=== PATIENT | female | born 1985 | race Caucasian/White ===

== ENCOUNTER 2016-06-10 21:00 | Outpatient (CLI) | payer MEDICAID ==
--- NOTE | 2016-06-10 22:01 | L&D Flow Sheet ---
LD Flowsheet Datetime Report Generated by CPN: 06/10/2016 22:00 Datetime: 06/10/2016 21:57 Vital Signs NBP Sys/Hannah/Mean (mmHg): 98 (QS system process) : 53 (QS system process) : 69 (QS system process) Pulse: 88 (QS system process) Datetime: 06/10/2016 21:42 Vital Signs NBP Sys/Hannah/Mean (mmHg): 108 (QS system process) : 51 (QS system process) : 75 (QS system process) Pulse: 94 (QS system process) Datetime: 06/10/2016 21:32 Pain Pain Scale: 3 (Rosemary Ordoñez RN) Pain Presence: Constant (Rosemary Ordoñez, ISI) Pain Type: Sharp; Stabbing (Rosemary Ordoñez, RN) Pain Location: Abdomen; Back; Perineum; Sacrum; Right Hip; Left Hip; Right Buttock; Left Buttock; Right Leg; Left Leg (Rosemary Ordoñez, ISI) Pain Relief Measures: Comfort Measures (Rosemary Chalman, ISI) Vaginal Exam Membrane Status: Intact (Rosemaryreza Ordoñez, ISI) Vaginal Bleeding: None (Rosemaryreza Ordoñez, ISI) Maternal Assessment Level of Consciousness: Fully Conscious (Rosemary Ordoñez, ISI) DTR's/Clonus: DTRs 1+ (Rosemary Ordoñez, ISI) Headache: Denies (Rosemary Ordoñez, ISI) Breath Sounds, Left: Clear and Equal (Rosemary Ordoñez, RN) Breath Sounds, Right: Clear and Equal (Rosemary Smita, RN) Nausea/Vomiting: Denies (Rosemary Smita, RN) RUQ Epigastric Pain: Denies (Rosemary Ordoñez, RN) Datetime: 06/10/2016 21:27 Vital Signs NBP Sys/Hannah/Mean (mmHg): 117 (QS system process) : 58 (QS system process) : 80 (QS system process) Pulse: 93 (QS system process) Datetime: 06/10/2016 21:25 Patient Care Patient Position/Activity: Left Lateral (Rosemary Ordoñez, RN) Datetime: 06/10/2016 21:18 Patient Care Comments: pt forgot to void in cup. pt will give specimen CARROLL (Rosemary Ordoñez RN)
[2016-06-10 22:36] LABS: APPEARANCE,URINE SLIGHTLY-CLOUDY; BILIRUBIN,URINE NEGATIVE (NEGATIVE); GLUCOSE, URINE NEGATIVE (NEGATIVE); KETONES,URINE NEGATIVE (NEGATIVE); LEUKOCYTE ESTERASE,URINE NEGATIVE (NEGATIVE); NITRITE,URINE NEGATIVE (NEGATIVE); PROTEIN,URINE NEGATIVE (NEGATIVE); URINE SPECIFIC GRAVITY 1.027; UROBILINOGEN,URINE NEGATIVE mg/dL (<2.0)
[2016-06-10 22:50] LABS: URINE BARBITURATES SCREEN NEGATIVE; URINE METHADONE SCREEN NEGATIVE; URINE PHENCYCLIDINE SCREEN NEGATIVE
[2016-06-10 23:01] LABS: URINE OPIATES LOW NEGATIVE
== END 2016-06-10 23:02 | disposition home or self-care (01) ==
LOC: LC 21:00
PROVIDERS: ATTEND Specialist
PROC: 4A1HXCZ Monitoring of Products of Conception, Cardiac Rate, External Approach (ICD-10-PCS; principal; 2016-06-10)
DX: O26.892 Other specified pregnancy related conditions, second trimester (principal); R10.9 Unspecified abdominal pain; R10.2 Pelvic and perineal pain; O99.89 Other specified diseases and conditions complicating pregnancy, childbirth and the puerperium; M54.9 Dorsalgia, unspecified; M25.552 Pain in left hip; M25.551 Pain in right hip; M79.605 Pain in left leg; M79.604 Pain in right leg; Z3A.27 27 weeks gestation of pregnancy
CPT/HCPCS: 59899; 81001; 80307; G0480 ×2

== ENCOUNTER 2016-08-31 12:59 | Outpatient (CLI) | payer MEDICAID | END 2016-08-31 14:01 | disposition home or self-care (01) | LOC: LC 12:59 | PROVIDERS: ATTEND Obstetrics & Gynecology | PROC: 4A1HXCZ Monitoring of Products of Conception, Cardiac Rate, External Approach (ICD-10-PCS; principal; 2016-08-31) | DX: O47.1 False labor at or after 37 completed weeks of gestation (principal); Z3A.38 38 weeks gestation of pregnancy | CPT/HCPCS: 59025 ==

== ENCOUNTER 2016-09-03 05:08 | Inpatient (IN) | payer MEDICAID ==
[2016-08-31 12:14] LABS: ABSOLUTE EOSINOPHILS # (AUTO) 0.1 10^3/uL (0.0-0.6); ABSOLUTE LYMPHOCYTES (AUTO) 2.6 10^3/uL (0.5-4.7); ABSOLUTE MONOCYTES (AUTO) 0.7 10^3/uL (0.1-1.4); ABSOLUTE NEUT (AUTO) 5.3 10^3/uL (1.7-8.2); BASOPHILS % (AUTO) 0.3 % (0-2); EOSINOPHILS % (AUTO) 0.8 % (0-6); HEMATOCRIT 32.5 % (36.0-47.0); HEMOGLOBIN 10.9 g/dL (12.0-15.5); HGB HCT DIFFERENCE 0.2; MEAN CORPUSCULAR HEMOGLOBIN 26.7 pg (27.0-33.4); MEAN CORPUSCULAR HGB CONC 33.5 g/dL (32.0-36.0); MEAN CORPUSCULAR VOLUME 80 fl (80-97); MONOCYTES % (AUTO) 7.5 % (3-13); RED BLOOD COUNT 4.07 10^6/uL (3.72-5.28); RED CELL DISTRIBUTION WIDTH 15.4 % (11.5-14.0); SEGMENTED NEUTROPHILS % (AUTO) 61.4 % (42-78); WHITE BLOOD COUNT 8.7 10^3/uL (4.0-10.5)
[2016-08-31 12:21] LABS: APPEARANCE,URINE CLOUDY; BILIRUBIN,URINE NEGATIVE (NEGATIVE); CALCIUM OXALATE CRYSTALS,URINE TOO NUMEROUS TO CNT /HPF; GLUCOSE, URINE NEGATIVE (NEGATIVE); KETONES,URINE TRACE mg/dL (NEGATIVE); LEUKOCYTE ESTERASE,URINE TRACE (NEGATIVE); NITRITE,URINE NEGATIVE (NEGATIVE); PROTEIN,URINE 30 mg/dL (NEGATIVE); URINE SPECIFIC GRAVITY 1.034
[2016-08-31 12:53] LABS: URINE BARBITURATES SCREEN NEGATIVE; URINE METHADONE SCREEN NEGATIVE; URINE OPIATES LOW NEGATIVE; URINE PHENCYCLIDINE SCREEN NEGATIVE
[2016-09-03] MEDS ORDERED: CEFAZOLIN 2 GM/D5W RTU 2 GM/50 ML RTUPB IV PRN (05:37)
[2016-09-03] MEDS: RINGERS SOLUTION,LACTATED 1,000 ML IV PRN (05:58)
[2016-09-03] MEDS ORDERED: KETOROLAC TROMETHAMINE INJ/PF 30 MG/1 ML SDV ONE (07:35)
[2016-09-03] MEDS ORDERED: OXYTOCIN 10 UNIT/ML VIAL ONE (07:35)
[2016-09-03] MEDS ORDERED: EPHEDRINE SULFATE INJ 50 MG/1 ML AMPULE ONE (07:36)
[2016-09-03] MEDS ORDERED: MIDAZOLAM 2 MG/2 ML INJ ONE (07:36)
[2016-09-03] MEDS ORDERED: FENTANYL CITRATE INJ/PF 250 MCG/5 ML AMPULE ONE (07:36)
[2016-09-03] MEDS ORDERED: ACETAMINOPHEN 100 ML IV ONE (07:36)
[2016-09-03] MEDS ORDERED: FENTANYL CITRATE INJ/PF 100 MCG/2 ML AMPUL ONE (07:36)
[2016-09-03] MEDS ORDERED: ONDANSETRON HCL INJ/PF 4 MG/2 ML SDV ONE (07:36)
[2016-09-03] MEDS ORDERED: OXYTOCIN/NORMAL SALINE 20 UNIT/1,000 ML RTUINJ ONE ×2 (07:36→11:33)
[2016-09-03 07:58] LABS: CHLAM PCR NOT DETECTED (NOT DETECT)
[2016-09-03] MEDS ORDERED: FENTANYL CITRATE INJ/PF 100 MCG/2 ML AMPUL IV PRN ×3 (08:23)
[2016-09-03] MEDS ORDERED: MORPHINE SULFATE 10 MG/ML INJ IV PRN (08:23)
[2016-09-03] MEDS ORDERED: ONDANSETRON HCL INJ/PF 4 MG/2 ML SDV IV PRN (08:23)
[2016-09-03] MEDS ORDERED: DIPHENHYDRAMINE HCL 50 MG/ML VIAL IV PRN (08:23)
[2016-09-03] MEDS ORDERED: MEPERIDINE HCL/PF INJ 25 MG/1 ML DISP.SYRIN IV PRN (08:23)
[2016-09-03] MEDS ORDERED: PROMETHAZINE HCL INJ 25 MG/1 ML VIAL IV PRN ×3 (08:23→09:42)
[2016-09-03] MEDS ORDERED: OXYCODONE-ACETAMINOPHEN 5-325 MG TABLET PO PRN ×4 (08:23→09:42)
[2016-09-03] MEDS ORDERED: NALBUPHINE HCL INJ 10 MG/1 ML AMPULE ONE (09:40)
[2016-09-03] MEDS ORDERED: MEASLES,MUMPS&RUBELLA VACC/PF 0.5 ML VIAL SUBCUT PRN (09:42)
[2016-09-03] MEDS ORDERED: SIMETHICONE 80 MG TAB.CHEW PO PRN (09:42)
[2016-09-03] MEDS ORDERED: DIPH/PERTUSS(ACELL)/TETANUS VAC/PF 0.5 ML SYR (>=10YO) IM PRN (09:42)
[2016-09-03] MEDS ORDERED: OXYTOCIN/NORMAL SALINE 1,000 ML IV PRN (09:42)
[2016-09-03] MEDS ORDERED: ACETAMINOPHEN 325 MG TABLET PO PRN (09:42)
--- NOTE | 2016-09-03 09:48 | Brief Operative Note ---
BRIEF OPERATIVE REPORT DATE OF SURGERY: 09/03/16 TIME OF SURGERY: 08:15 PREOPERATIVE DIAGNOSIS: h/o prior C/S x 2, +AFP, normal Informaseq, Smoker , Undesired Fertility. POSTOPERATIVE DIAGNOSIS: h/o prior C/S x 2, +AFP, normal Informaseq, Smoker , Undesired Fertility. SURGEON: ELY SMITH FINDINGS: enlarged right tube, significant adhesive disease, bilateral normal ovaries, normal uterus, Filschie cips x 2 placed bilaterally, VFI weight8#1oz, time of 0832, APgars 2/8 COMPLICATIONS: adhesive disease from prior surgery ESTIMATED BLOOD LOSS: 600ml TISSUE REMOVED OR ALTERED: placenta and cord TECHNICAL PROCEDURE: RELTCS with BTL with Filschie clips
[2016-09-03] MEDS ORDERED: ALBUTEROL 2 MG/5 ML SYRP 60 ML PO PRN (11:51)
[2016-09-03] MEDS: DOCUSATE SODIUM 100 MG CAPSULE PO SCH ×2 (12:11→17:31)
[2016-09-03] MEDS: HYDROMORPHONE HCL INJ/PF 2 MG/ML AMPULE IV PRN ×3 (12:13→19:45)
--- NOTE | 2016-09-03 13:10 | PDOC DELIVERY SUMMARY ---
Delivery Summary - Maternal Hx : III Hx # Term Pregnancies: 2 Hx # Pregnancies: 0 Hx Total # of Abortions (Sponateous & Elective): 0 Number of Living Children: 2 PRASHANTH: 09/09/16 Gestational Age: 39 Risk Factors: Other - +AFP - normal informaseq, Smoker Ruptured Membranes: AROM Time of Rupture: 08:26 Fluids: Clear - Delivery Labor: Not In Labor Presentation: Breech Heart Rate Monitoring: Done Pre-Operatively Uterine Contraction Monitoring: External Pattern: Other: Document in Pattern Other Pattern Other: REassuring but non-reactive Support Person Present: Yes Location: OR : Scheduled Placenta: Within Normal Limits Placenta Description: normal Number of Vessels (Cord): 3 Nuchal Cord: No Delivery of Placenta Date: 09/03/16 Delivery of Placenta Time: 08:34 - Medications Type of Anesthesia:: Spinal - Infant Assess and Care Baby 1 Female Delivery of Infant Date: 09/03/16 Delivery of Infant Time: 08:32 at 1 minute: 2 at 5 minutes: 8 Preprinted Number On Band: [id number] Skin to Skin: No To Nursery At: 08:41 Mode of Transport: [facility] Weight: 3645 kg Length: 19.5 in - Delivery Personnel Nursery RN: Korina RODRIGUEZ Nursery RN: Fantasma BARROS RN: PAULIE HALL RN: WALTER COLLINS MD: ELY SMITH Manager Of Construction: DR. MENDOZA
[2016-09-03] MEDS ORDERED: PHENYLEPHRINE HCL INJ/PF 10 MG/1 ML SDV ONE (13:44)
[2016-09-03] MEDS: KETOROLAC TROMETHAMINE INJ/PF 30 MG/1 ML SDV IV SCH ×2 (16:18→21:40)
[2016-09-03] MEDS: PRENATAL VITAMIN W-O CA NO5/FE FUMARATE/FA CAPSULE PO SCH (19:39)
--- NOTE | 2016-09-03 21:36 | Operative Report ---
Operative Report DATE OF SURGERY: 09/03/16 PREOPERATIVE DIAGNOSIS: h/o prior C/S x 2, +AFP, normal Informaseq, Smoker , Undesired Fertility. POSTOPERATIVE DIAGNOSIS: h/o prior C/S x 2, +AFP, normal Informaseq, Smoker , Undesired Fertility. OPERATION: RELTCS with BTL with Filschie clips SURGEON: ELY SMITH ANESTHESIA: Spinal TISSUE REMOVED OR ALTERED: placenta and cord ESTIMATED BLOOD LOSS: 600ml INTRAOPERATIVE FINDINGS: enlarged right tube, significant adhesive disease, bilateral normal ovaries, normal uterus, Filschie cips x 2 placed bilaterally, VFI weight8#1oz, time of 0832, APgars 2/8 PROCEDURE: PREOPERATIVE DIAGNOSIS: undelivered at [39+1ega] weeks, h/o prior C/S x 2, +AFP, normal Informaseq, Smoker, Undesired Fertility POSTOPERATIVE DIAGNOSIS: Same as above delivered Procedure: Repeat LTCS with BTL (Filschie) Receiving Distribution Station Operator:[None] Anesthesia: Spinal Anesthesia provider: [Naomi CHAUDHARY, Stevan Cedillo CRNA] Estimated blood loss: [600ml] Urine output: [250ml] IV fluids: [1500ml] Complications: [None] Specimens: [None] Findings: [enlarged right fallopian tube, significant adhesive disease omentum to anterior abdominal wall, bilateral normal ovaries, normal uterus, Filschie cips x 2 placed bilaterally, VFI weight8#1oz, time of 0832, APgars 2/8, floating presenting head attempted to deliver vertex but converted during delivery to transverse therefore baby delivered from breech presentation.] Indications: [30yo at 39+1ega with h/o prior section 2 and undesired fertility presents for repeat elective low transverse section due to the above indications. complicated by positive AFP as above with normal Informaseq. The risks benefits and alternatives were discussed with the patient and the patient desires to proceed with planned procedure. ] Procedure: The patient was taken to the operating room where spinal anesthesia was obtained and found to be adequate. She was then prepped and draped in the normal sterile fashion and placed in the dorsal supine position with a leftward tilt. A Pfannenstiel skin incision was then made and carried through to the underlying layers of the fascia with the scalpel. The fascia was incised in the midline and the incision extended laterally with the Casillas scissors. The superior aspect of the fascial incision was then grasped with Mendez clamps elevated and the underlying rectus muscles dissected off [sharply]. Attention was then turned to the inferior aspect of the fascial incision which in a similar fashion was grasped, tented up with Martin clamps, and the rectus muscles dissected off [sharply]. The rectus muscles were then in the midline and the peritoneum at the amount identified and entered [sharply] and the omentum was dissected off the rectus muscles. The peritoneal incision was then extended superiorly and inferiorly with good visualization of the bladder. The bladder blade was inserted and the vesicouterine peritoneum identified grasped with Taiwanese pickups and entered sharply with the Metzenbaum scissors. This incision was then extended laterally with the Metzenbaum scissors and a bladder flap created digitally. The bladder blade was then reinserted and the lower uterine segment incised in a transverse fashion with the scalpel. The uterine incision was then extended bluntly. The bladder blade was removed and the infant's head was attempted to be delivered from cephalic presentation however during attempted delivery the converted to transverse presentation and therefore the infant was delivered from breech presentation atraumatically. The nose and mouth were suctioned and the cord doubly clamped and cut. And the infant was handed off to waiting pediatricians. The placenta was then delivered spontaneously and the uterus exteriorized and cleared of all clots and debris. The uterine incision was then repaired with 1- 0 Vicryl in a running locked fashion. A second layer of the same suture was used to obtain hemostasis via imbrication of the initial layer. The bladder flap was then repaired with 3-0 chromic in a running fashion. The right fallopian tube was then identified and followed out to the fimbriated end and 2 Filshie clips were placed approximately 1 cm apart in the mid ampullary portion of the fallopian tube. The left fallopian tube was then identified and followed out to the fimbriated end and 2 Filshie clips were placed approximately 1 cm apart in the mid ampullary portion of the fallopian tube. Filshie clips were placed instead of Weed tubal ligation due to mesenteric vessels extending to the fallopian tube and very distended. The uterus was returned to the patient's abdomen and Interceed was placed overlying the uterine incision to prevent adhesions. The gutters were cleared of all clots and debris. All operative sites were noted to be hemostatic. The rectus muscles were then reapproximated in the midline with 2-0 chromic suture in a running fashion. Good hemostasis. The fascia was reapproximated with 0 Vicryl in a running fashion from each lateral edge to the midline.The skin was closed with 3-0 Monocryl in a running subcuticular fashion with overlying Dermabond for additional dressing as well as wound closure. The patient tolerated the procedure well. Sponge lap needle and instrument counts are correct times 2. 2 g of Ancef were given prior to skin incision. The patient was taken to the recovery area awake and in stable condition.
[2016-09-03] MEDS ORDERED: RINGERS SOLUTION,LACTATED 1,000 ML IV ONE (21:45)
[2016-09-03] MEDS: OXYCODONE-ACETAMINOPHEN 5-325 MG TABLET PO PRN (21:57)
[2016-09-04] MEDS: OXYCODONE-ACETAMINOPHEN 5-325 MG TABLET PO PRN ×4 (02:02→20:35)
[2016-09-04] MEDS: RINGERS SOLUTION,LACTATED 1,000 ML IV PRN (02:02)
[2016-09-04] MEDS: IBUPROFEN 800 MG TABLET PO SCH ×4 (05:22→23:16)
[2016-09-04 07:03] LABS: HEMATOCRIT 29.6 % (36.0-47.0); HEMOGLOBIN 10.1 g/dL (12.0-15.5); HGB HCT DIFFERENCE 0.7; MEAN CORPUSCULAR HEMOGLOBIN 26.9 pg (27.0-33.4); MEAN CORPUSCULAR VOLUME 79 fl (80-97); RED BLOOD COUNT 3.75 10^6/uL (3.72-5.28); RED CELL DISTRIBUTION WIDTH 15.6 % (11.5-14.0); WHITE BLOOD COUNT 10.8 10^3/uL (4.0-10.5)
[2016-09-04] MEDS ORDERED: PRENATAL VITAMIN W-O CA NO5/FE FUMARATE/FA CAPSULE PO SCH (10:00)
[2016-09-04] MEDS ORDERED: (PENDING PHARMACY ID) (Prenatal Vit/Iron Fumarate/Fa [Prenatal Tablet] 1 EACH) PO SCH (10:00)
[2016-09-04] MEDS: DOCUSATE SODIUM 100 MG CAPSULE PO SCH ×2 (10:04→17:22)
[2016-09-04] MEDS: PRENATAL VITAMIN W-O CA NO5/FE FUMARATE/FA CAPSULE PO SCH (10:04)
--- NOTE | 2016-09-04 10:26 | PDOC PROGRESS REPORT ---
Subjective-OB Subjective: Post Delivery Day: 30 year old. Denies any needs at this time Doing well, visiting with family, pain under control, voiding, + BM, + flatus, diet taken well Physical Exam (OB) Vital Signs: Temp Pulse Resp BP Pulse Ox 97.4 F 84 18 107/55 L 99 09/04/16 08:20 09/04/16 08:20 09/04/16 08:20 09/04/16 08:20 09/04/16 08:20 Intake & Output 09/03/16 09/04/16 09/05/16 06:59 06:59 06:59 Intake Total 3950 Output Total 1175 Balance 2775 Weight 118.6 kg - Dressing Removed: No - dermabond Incision: Well Approximated Closure Type: Surgical Glue - Bilateral Tubal Ligation Dressing Removed: Yes Site: Well Approximated - Lochia Lochia Amount: Scant < 10 ml Lochia Color: Rubra/Red - Abdomen Description: Soft, Round Hernia Present: No Fundal Description: Firm, Midline Fundal Height: u/u - u/2 Objective-Diagnostic Laboratory: 09/04/16 06:55 09/04/16 09/04/16 06:55 06:55 WBC 10.8 H RBC 3.75 Hgb 10.1 L Hct 29.6 L MCV 79 L MCH 26.9 L MCHC 34.0 RDW 15.6 H Plt Count 191 Blood Type O NEGATIVE Assessment and Plan(PN) - Assessment and Plan (1) Smoker Is this a current diagnosis for this admission?: Yes (2) Obesity complicating Qualifiers: Trimester: first trimester Qualified Code(s): O99.211 - Obesity complicating , first trimester Is this a current diagnosis for this admission?: Yes (3) Delivery by section of full-term Is this a current diagnosis for this admission?: Yes (4) Anemia Qualifiers: Anemia type: iron deficiency Is this a current diagnosis for this admission?: Yes - Time Spent with Patient Time with patient: Less than 15 minutes Medications reviewed and adjusted accordingly: Yes - Disposition Anticipated Discharge: Home Within: within 24 hours
[2016-09-05] MEDS: OXYCODONE-ACETAMINOPHEN 5-325 MG TABLET PO PRN (01:59)
[2016-09-05] MEDS: IBUPROFEN 800 MG TABLET PO SCH ×2 (06:03→13:12)
[2016-09-05] MEDS: PRENATAL VITAMIN W-O CA NO5/FE FUMARATE/FA CAPSULE PO SCH (09:05)
[2016-09-05] MEDS: DOCUSATE SODIUM 100 MG CAPSULE PO SCH (09:05)
--- NOTE | 2016-09-05 11:50 | PDOC DISCHARGE SUMMARY ---
Final Diagnosis Discharge Date: 09/05/16 - Final Diagnosis (1) Anemia Is this a current diagnosis for this admission?: Yes (2) Delivery by section of full-term Is this a current diagnosis for this admission?: Yes Discharge Data - Discharge Medication Home Medications: Albuterol Sulfate [Proventil 2 mg/5 ml Syrup] 2 mg PO ASDIR PRN 08/31/16 Ferrous Sulfate [Iron] 325 mg PO DAILY 08/31/16 Vit/Iron Fumarate/FA [ Tablet] 1 each PO DAILY 08/31/16 Intrapartum Procedure(s): : Low Cervical, Vertical - Diagnosis Test Laboratory: Temp Pulse Resp BP Pulse Ox 98.0 F 80 18 80/36 L 100 09/05/16 08:24 09/05/16 08:24 09/05/16 08:24 09/05/16 08:24 09/05/16 08:24 08/31/16 08/31/16 09/04/16 11:05 11:23 06:55 RBC 4.07 3.75 Hgb 10.9 L 10.1 L Hct 32.5 L 29.6 L Urine Opiates Screen NEGATIVE - Discharge information/Instructions Discharge Activity: Activity As Tolerated, No Driving, No Lifting Over 10 Pounds , No Lifting/Push/Pulling, Pelvic Rest, No tub bath Discharge Diet: Regular Disposition: HOME, SELF-CARE Follow up with: [facility] in: 1
[2016-09-05 12:21] VITALS: BP 111/59
== END 2016-09-05 14:25 | disposition home or self-care (01) | DRG 766 ==
LOC: 2S 05:08
PROVIDERS: ADMIT Student in an Organized Health Care Education/Training Program; ATTEND Student in an Organized Health Care Education/Training Program
PROC: 0UL70CZ Occlusion of Bilateral Fallopian Tubes with Extraluminal Device, Open Approach (ICD-10-PCS; 2016-09-03)
PROC: 4A1HXCZ Monitoring of Products of Conception, Cardiac Rate, External Approach (ICD-10-PCS; 2016-09-03)
PROC: 10D00Z1 Extraction of Products of Conception, Low, Open Approach (ICD-10-PCS; principal; 2016-09-03 07:45)
PROC: 3E0234Z Introduction of Serum, Toxoid and Vaccine into Muscle, Percutaneous Approach (ICD-10-PCS; 2016-09-04)
DX: O34.211 Maternal care for low transverse scar from previous cesarean delivery (principal); O32.1XX0 Maternal care for breech presentation, not applicable or unspecified; O26.893 Other specified pregnancy related conditions, third trimester; O99.89 Other specified diseases and conditions complicating pregnancy, childbirth and the puerperium; N73.6 Female pelvic peritoneal adhesions (postinfective); O99.334 Smoking (tobacco) complicating childbirth; O99.02 Anemia complicating childbirth; D64.9 Anemia, unspecified; F17.210 Nicotine dependence, cigarettes, uncomplicated; Z67.41 Type O blood, Rh negative; Z3A.39 39 weeks gestation of pregnancy; Z37.0 Single live birth; Z30.2 Encounter for sterilization
CPT/HCPCS: 1961; 36415; 59025; 80307; 81001; 85025; 85027; 85461; 86850; 86900; 86901; 87491; 87591; 88307; 94799; C1765; J0131; J0690; J1170; J1885; J2250; J2300; J2370; J2405; J2590; J2790; J3010; J3490; J7120

== ENCOUNTER 2016-09-22 11:45 | Emergency (ER) | payer MEDICAID ==
--- NOTE | 2016-09-22 13:13 | ER Document Report ---
HPI - HPI Patient complains to provider of: abdominal wall pain Pain Level: 4 Context: Patient is a 31-year-old female presents emergency department complaining of superficial abdominal wall pain patient states that on Saturday she tripped and landed on her side. She admits to pain on the right lateral aspect of her abdomen with pain radiating down across to her left lower quadrant and also up into the right part of her chest. She denies any pain with deep inspiration. She states it is worse with sitting up sitting back active movement of her torso and right upper extremity. She was evaluated by her OVEN TENDER today who felt that she was stable. She had had a transvaginal ultrasound at that time to evaluate her postop healing. She was told everything else looks fine. Patient had a and tubal ligation [address] [facility] is her OVEN TENDER - CARDIOVASCULAR Cardiovascular: DENIES: Chest pain - REPRODUCTIVE Reproductive: REPORTS: : - DERM Skin Color: Normal Past Medical History - Social History Smoking Status: Current Every Day Smoker Frequency of alcohol use: None Drug Abuse: None Family History: Arthritis, CAD, CVA, DM, Hyperlipidemia, Hypertension Patient has suicidal ideation: No Patient has homicidal ideation: No - Past Medical History Cardiac Medical History: Reports: Hx Hypertension - with Denies: Hx Pulmonary Embolism, Hx Heart Murmur Pulmonary Medical History: Denies: Hx Asthma, Hx Sleep Apnea, Hx Tuberculosis Neurological Medical History: Denies: Hx Cerebrovascular Accident, Hx Seizures Renal/ Medical History: Denies: Hx Peritoneal Dialysis GI Medical History: Reports: Hx Gastroesophageal Reflux Disease - chronic. Denies: Hx Hiatal Hernia, Hx Ulcer Musculoskeltal Medical History: Denies Hx Fibromyalgia Psychiatric Medical History: Traumatic Medical History: Denies: Hx Fractures Infectious Medical History: Denies: Hx HIV Past Surgical History: Reports: Hx Section - x 2, Hx Cholecystectomy, Hx Tonsillectomy - Immunizations Immunizations up to date: Yes Hx Diphtheria, Pertussis, Tetanus Vaccination: No Vertical Provider Document - CONSTITUTIONAL Agree With Documented VS: Yes Exam Limitations: No Limitations General Appearance: WD/WN, No Apparent Distress - INFECTION CONTROL TRAVEL OUTSIDE OF THE [place] IN LAST 30 DAYS: No - RESPIRATORY O2 Sat by Pulse Oximetry: 97 - GI/ABDOMEN Gastrointestinal: Abdomen Soft, Abdomen Tender, No Organomegaly, Normal Bowel Sounds. negative: Abdominal Rebound, Hepatomegaly, Spleenomegaly, Abdominal Mass - No longer tender to superficial palpation of the right serratus anterior , Abnormal Bowel Sounds - MUSCULOSKELETAL/EXTREMETIES Musculoskeletal/Extremeties: MAEW, FROM, Non-Tender, No Edema. negative: Eccymosis - NEURO Level of Consciousness: Awake, Alert, Appropriate Motor/Sensory: No Motor Deficit, No Sensory Deficit - DERM Integumentary: Warm, Dry, No Rash Course - Re-evaluation Re-evalutation: 09/22/16 16:13 Patient is a 22-year-old female presents with right lateral abdominal wall tenderness after fall. No evidence of free fluid on her FAST exam patient otherwise has benign abdominal findings. Return home he can follow-up with OB/ TENDER LABOR - Vital Signs Vital signs: Temp Pulse Resp BP Pulse Ox 97.8 F 87 18 130/71 H 97 09/22/16 12:06 09/22/16 12:06 09/22/16 12:06 09/22/16 12:06 09/22/16 12:06 Procedures - Ultrasound/Bedside Ultrasound/Bedside Ultrasound: Normal - normal FAST exam, no free fluid Discharge - Discharge Clinical Impression: Abdominal muscle strain Condition: Good Disposition: HOME, SELF-CARE Instructions: Muscle Strain ([facility]), Warm Packs ([facility]), Use of [id number] Ibuprofen ([facility]) Referrals: ELY SMITH MD [ACTIVE STAFF] - Follow up as needed
[2016-09-22] MEDS ORDERED: IBUPROFEN 600 MG TABLET PO ONE (13:14)
[2016-09-22 13:22] VITALS: BP 132/75
== END 2016-09-22 13:22 | disposition home or self-care (01) ==
LOC: ER 11:45
DX: O9A.23 Injury, poisoning and certain other consequences of external causes complicating the puerperium (principal); S39.011A Strain of muscle, fascia and tendon of abdomen, initial encounter; W01.0XXA Fall on same level from slipping, tripping and stumbling without subsequent striking against object, initial encounter; O99.335 Smoking (tobacco) complicating the puerperium; Z98.890 Other specified postprocedural states; Z98.51 Tubal ligation status
CPT/HCPCS: 99283; J3490

== ENCOUNTER 2017-01-29 22:27 | Emergency (ER) | payer MEDICAID ==
[2017-01-30 00:31] LABS: APPEARANCE,URINE CLOUDY; BILIRUBIN,URINE NEGATIVE (NEGATIVE); GLUCOSE, URINE NEGATIVE (NEGATIVE); KETONES,URINE NEGATIVE (NEGATIVE); LEUKOCYTE ESTERASE,URINE NEGATIVE (NEGATIVE); NITRITE,URINE NEGATIVE (NEGATIVE); PROTEIN,URINE 100 mg/dL (NEGATIVE); URINE SPECIFIC GRAVITY 1.032
--- NOTE | 2017-01-30 01:32 | ER Document Report ---
ED General - General Chief Complaint: Pain With Urination Stated Complaint: PAINFUL URINATION Time Seen by Provider: 01/30/17 01:19 Notes: Patient is a 31-year-old female presents with complaint of bilateral lower back pain and dysuria. She says that symptoms first started about a week ago but has been much worse over the last 3 days. No fevers. No vomiting. No diarrhea. No anterior abdominal pain. She says that every time she urinates it johnson and she feels as if she has to go and sometimes she feels as if her urine is obstructed and then she will eventually urinate. She is currently on her menstrual period. She denies any abnormal vaginal discharge. She denies history of genital herpes. She has no other complaints at this time. TRAVEL OUTSIDE OF THE [place] IN LAST 30 DAYS: No - Related Data Allergies/Adverse Reactions: No Known Allergies Allergy (Verified 09/22/16 12:05) Past Medical History - Social History Smoking Status: Never Smoker Frequency of alcohol use: None Drug Abuse: None Family History: Arthritis, CAD, CVA, DM, Hyperlipidemia, Hypertension Patient has suicidal ideation: No Patient has homicidal ideation: No - Past Medical History Cardiac Medical History: Reports: Hx Hypertension - with Denies: Hx Pulmonary Embolism, Hx Heart Murmur Pulmonary Medical History: Denies: Hx Asthma, Hx Sleep Apnea, Hx Tuberculosis Neurological Medical History: Denies: Hx Cerebrovascular Accident, Hx Seizures Renal/ Medical History: Denies: Hx Peritoneal Dialysis GI Medical History: Reports: Hx Gastroesophageal Reflux Disease - chronic. Denies: Hx Hiatal Hernia, Hx Ulcer Musculoskeltal Medical History: Denies Hx Fibromyalgia Psychiatric Medical History: Traumatic Medical History: Denies: Hx Fractures Infectious Medical History: Denies: Hx HIV Past Surgical History: Reports: Hx Section - x 2, Hx Cholecystectomy, Hx Tonsillectomy - Immunizations Immunizations up to date: Yes Hx Diphtheria, Pertussis, Tetanus Vaccination: No Review of Systems - Review of Systems Notes: My Normal Review Basic REVIEW OF SYSTEMS: CONSTITUTIONAL : Denies fever, chills, or sweats. Denies recent illness. RESPIRATORY: Denies cough, cold, or chest congestion. Denies shortness of breath, difficulty breathing, or wheezing. GASTROINTESTINAL: No abdominal pain. GENITOURINARY: Dysuria FEMALE GENITOURINARY: currently on menstrual period. MUSCULOSKELETAL: Bilateral low back pain. SKIN: Denies rash or skin lesions. NEUROLOGICAL: Denies altered mental status or loss of consciousness. Denies headache. Denies weakness or paralysis or loss of use of either side. Denies problems with gait or speech. Denies sensory or motor loss. ALL OTHER SYSTEMS REVIEWED AND NEGATIVE. Physical Exam - Vital signs Vitals: Temp Pulse Resp BP Pulse Ox 99.2 F 87 16 121/61 97 01/29/17 23:01 01/29/17 23:01 01/29/17 23:01 01/29/17 23:01 01/29/17 23:01 - Notes Notes: General Appearance: Well nourished, alert, cooperative, no acute distress, no obvious discomfort. Vitals: reviewed, See vital signs table. Eyes: PERRL, EOMI, Conjuctiva clear Lungs: No wheezing, No rales, No rhonci, No accessory muscle use, good air exchange bilaterally. Heart: Normal rate, Regular rythm, No murmur, no rub Abdomen: Normal BS, soft, No rigidity, No abdominal tenderness, No guarding, no rebound, no abdominal masses, no organomegaly Extremities: strength 5/5 in all extremities, good pulses in all extremities, no swelling or tenderness in the extremities, no edema. Skin: warm, dry, appropriate color, no rash Neuro: speech clear, oriented x 3, normal affect, responds appropriately to questions. Course - Re-evaluation Re-evalutation: 01/30/17 05:56 The exact cause of the patient's dysuria is not clear at this time. I did talked about the potential of sexual transmitted diseases. At this time she wants to forego pelvic exam and she wants to see if there is a 3 day course of antibiotics will help. I did place her in a 3 day course of antibiotics because she does have dysuria with some costovertebral angle tenderness which is very consistent with that of a UTI. Currently urinalysis does not show infection however she is on her menstrual period in the urine sample is very much contaminated due to her being on a period. Informed her that because of this we will treat her based on her clinical systems for 3 days. If her symptoms worsen or if she has fevers and she is to return to the ER immediately. Patient agrees with plan will be discharged home. Dictation of this chart was performed using voice recognition software; therefore, there may be some unintended grammatical errors. - Vital Signs Vital signs: Temp Pulse Resp BP Pulse Ox 98.3 F 65 18 108/62 98 01/30/17 03:22 01/30/17 03:22 01/30/17 03:22 01/30/17 03:22 01/30/17 03:22 - Laboratory Laboratory results interpreted by me: 01/30/17 00:01 Urine Protein 100 H Urine Blood LARGE H Urine Urobilinogen 2.0 H Discharge - Discharge Clinical Impression: Dysuria Back pain Qualifiers: Back pain location: low back pain Chronicity: acute Back pain laterality: bilateral Sciatica presence: without sciatica Qualified Code(s): M54.5 - Low back pain Condition: Good Disposition: HOME, SELF-CARE Additional Instructions: The exact cause of your symptoms is not clear. Her symptoms are consistent with that of a UTI however her workup thus far is negative. We will therefore place you on a short course of antibiotics. Urine has been sent for culture. Please take the antibiotics as prescribed. Please return to the ER in 3 days if you are not having improvement of your symptoms. Please return to the ER immediately if you have abnormal vaginal discharge, fever,s vomiting, or feel unwell. Prescriptions: Ciprofloxacin HCl [Cipro 500 mg Tablet] 500 mg PO BID #6 tablet Forms: Return to Work
--- NOTE | 2017-01-30 02:31 | RADIOLOGY REPORT (SQ) ---
EXAM DESCRIPTION: U/S RETROPERITON (RENAL/AORTA) COMPLETED DATE/TIME: 01/30/2017 2:02 am REASON FOR STUDY: bilateral flank pain, dysuria COMPARISON: None. TECHNIQUE: Dynamic and static grayscale images acquired of the kidneys and bladder and recorded on P ACS. Additional selected color Doppler and spectral images recorded. LIMITATIONS: None. FINDINGS: RIGHT KIDNEY: Normal size. 12.2 cm. Normal echogenicity. No solid or suspicious masses. No hydronephrosis. No calcifications. LEFT KIDNEY: Normal size. 11.6 cm. Normal echogenicity. No solid or suspicious masses. No hydronep hrosis. No calcifications. BLADDER: No masses. Bilateral ureteral jet flow demonstrated. OTHER FINDINGS: No other significant finding. IMPRESSION: NORMAL RENAL AND BLADDER ULTRASOUND. TECHNICAL DOCUMENTATION: JOB ID: [id number] [email or web address] All Rights Reserved
[2017-01-30] MEDS ORDERED: CIPROFLOXACIN HCL 500 MG TABLET PO ONE (03:09)
[2017-01-30 03:23] VITALS: BP 108/62
== END 2017-01-30 03:22 | disposition home or self-care (01) ==
LOC: ER 22:27
DX: R30.0 Dysuria (principal); M54.5 Low back pain; Z90.49 Acquired absence of other specified parts of digestive tract
CPT/HCPCS: 99284; 87086; 81025; 81001; 76770; J3490

== ENCOUNTER 2017-09-16 19:09 | Emergency (ER) | payer MEDICAID ==
[2017-09-16 19:28] VITALS: BP 128/69
[2017-09-16] MEDS ORDERED: DEXAMETHASONE SOD PHOS INJ 10 MG/1 ML VIAL IM ONE (19:39)
[2017-09-16] MEDS ORDERED: KETOROLAC TROMETHAMINE INJ/PF 30 MG/1 ML SDV IM ONE (19:39)
[2017-09-16] MEDS ORDERED: PENICILLIN G BENZATHINE 1.2 MILLION UNIT/2 ML DISP.SYRIN IM ONE (19:39)
--- NOTE | 2017-09-16 19:47 | ER Document Report ---
ED ENT - General Chief Complaint: Fever/ congestion Stated Complaint: HEAD CONGESTION Time Seen by Provider: 09/16/17 19:31 Mode of Arrival: Ambulatory Information source: Patient Notes: 31-year-old female presents to ED for sore throat, fever up to 103, and nasal congestion since last night. She states she also has a headache. States she has been taken Tylenol and Motrin to keep her fever down. TRAVEL OUTSIDE OF THE [place] IN LAST 30 DAYS: No - HPI Patient complains to provider of: Nose problem, Throat problem, Other - Headache Onset: Yesterday Quality of pain: Achy, Other - Throbbing headache sore throat Severity: Moderate Pain Level: 4 Context: Recent Illness Location of pain: Nose, Throat, Other - Head Associated symptoms: Fever, Headache, Runny nose, Sinus pain, Sinus drainage, Sore throat Similar symptoms previously: No Recently seen / treated by doctor: No - Related Data Allergies/Adverse Reactions: No Known Allergies Allergy (Verified 09/22/16 12:05) Past Medical History - General Information source: Patient - Social History Smoking Status: Current Every Day Smoker Cigarette use (# per day): Yes - Half pack per day Chew tobacco use (# tins/day): No Smoking Education Provided: Yes - 4 minutes Frequency of alcohol use: Social Drug Abuse: None Occupation: None Lives with: Friend Family History: Arthritis, CAD, CVA, DM, Hyperlipidemia, Hypertension Patient has suicidal ideation: No Patient has homicidal ideation: No - Past Medical History Cardiac Medical History: Reports: Hx Hypertension - with Pulmonary Medical History: Reports: Hx Bronchitis EENT Medical History: Reports: None Neurological Medical History: Reports: None Endocrine Medical History: Reports: None Renal/ Medical History: Reports: Hx Ovarian Cysts Malignancy Medical History: Reports: None GI Medical History: Reports: Hx Gastroesophageal Reflux Disease - chronic Musculoskeltal Medical History: Reports None Skin Medical History: Reports None Psychiatric Medical History: Reports: None Traumatic Medical History: Reports: None Infectious Medical History: Reports: None Past Surgical History: Reports: Hx Section - x 2, Hx Cholecystectomy, Hx Tonsillectomy - Immunizations Immunizations up to date: Yes Hx Diphtheria, Pertussis, Tetanus Vaccination: No Review of Systems - Review of Systems Constitutional: Fever, Recent illness EENT: Nose discharge, Sinus discharge, Throat pain Cardiovascular: No symptoms reported Respiratory: No symptoms reported Gastrointestinal: No symptoms reported Genitourinary: No symptoms reported Female Genitourinary: No symptoms reported Musculoskeletal: No symptoms reported Skin: No symptoms reported Hematologic/Lymphatic: No symptoms reported Neurological/Psychological: Headaches -: Yes All other systems reviewed and negative Physical Exam - Vital signs Vitals: Temp Pulse Resp BP Pulse Ox 98.2 F 119 H 20 128/69 H 98 09/16/17 19:27 09/16/17 19:27 09/16/17 19:27 09/16/17 19:27 09/16/17 19:27 Interpretation: Tachycardic - General General appearance: Appears well, Alert - HEENT Head: Normocephalic, Atraumatic Eyes: Normal Pupils: PERRL Ears: Normal External canal: Normal Tympanic membrane: Normal Sinus: Normal Nasal: Purulent discharge, Swelling Mouth/Lips: Normal Mucous membranes: Normal Pharynx: Erythema, Exudate, Post nasal drainage, Tonsillar hypertrophy, Other - Patient able to swallow her own saliva. Patient able to swallow pills and drink soda. No: Blood in hypopharynx, Peritonsillar abscess, Retropharyngeal abscess, Uvular edema, Potential airway comprom. Neck: Anterior cervical chain - Respiratory Respiratory status: No respiratory distress Chest status: Nontender Breath sounds: Normal Chest palpation: Normal - Cardiovascular Rhythm: Regular Heart sounds: Normal auscultation Murmur: No - Abdominal Inspection: Normal Distension: No distension Bowel sounds: Normal Tenderness: Nontender Organomegaly: No organomegaly - Back Back: Normal, Nontender - Extremities General upper extremity: Normal inspection, Nontender, Normal color, Normal ROM , Normal temperature General lower extremity: Normal inspection, Nontender, Normal color, Normal ROM , Normal temperature, Normal weight bearing. 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 Will treat with penicillin G, Toradol, and Decadron and have follow-up with primary doctor tomorrow. Patient was informed that she should return to the emergency right away if she has any difficulty swallowing any shortness of breath or any insect increase in symptoms. - Vital Signs Vital signs: Temp Pulse Resp BP Pulse Ox 98.2 F 99 20 128/69 H 98 09/16/17 19:27 09/16/17 20:09 09/16/17 19:27 09/16/17 19:27 09/16/17 19:27 Discharge - Discharge Clinical Impression: Sore throat URI (upper respiratory infection) Qualifiers: URI type: unspecified URI Qualified Code(s): J06.9 - Acute upper respiratory infection, unspecified Condition: Stable Disposition: HOME, SELF-CARE Instructions: Family Physicians / Practices Additional Instructions: SORE THROAT: Sore throats may be caused by viruses, bacteria, or fungi. Most are due to a virus, and must get better on their own. Bacterial sore throats, particularly those due to "strep," need treatment with antibiotics. If an antibiotic is prescribed, be sure to take the medication for a full 10 days. Failure to take the antibiotic can result in complications such as rheumatic fever. Sometimes, an injection of antibiotics is given instead of pills or liquid. This single "shot" is equal in effectiveness to the oral medication. To relieve symptoms, take acetaminophen for pain. Sip clear liquids frequently, or eat popsicles or ice chips. Anesthetic sprays or lozenges may help. Make sure the air in the room is not too dry. Avoid using decongestants or antihistamines. Call the doctor if there is no improvement in two days, or if you have difficulty breathing, increasing throat pain, high fever, rash, or frequent vomiting. UPPER RESPIRATORY ILLNESS: You have a viral infection of the respiratory passages -- a "cold." This common infection causes nasal congestion, drainage, and often sore throat and cough. It is highly contagious. The disease usually lasts about 10 to 14 days. There is no "cure" for the viral infection -- it must run its course. If there is a complication, such as bacterial infection in the nose, sinuses, middle ear, or bronchial tubes, antibiotics may be required. The antibiotics won't affect the virus. Drink plenty of fluids. A humidifier may help. An expectorant medication or decongestant may make you more comfortable. Use acetaminophen or ibuprofen for fever or aches. See the doctor if fever persists over two days, if there is any significant worsening of your symptoms, or if you simply fail to improve as expected. USE OF ACETAMINOPHEN (Tylenol): Acetaminophen may be taken for pain relief or fever control. It's much safer than aspirin, offering a wider range of "safe" dosages. It is safe during . Some brand names are Tylenol, Panadol, Datril, Anacin 3, Tempra, and Liquiprin. Acetaminophen can be repeated every four hours. The following are maximum recommended dosages: >89 pounds or adults 650 mg to 900 mg Acetaminophen can be repeated every four hours. Maximum dose not to exceed 4000 mg a day. Penicillins The antibiotic you have received is a member of the penicillin family. This is a very useful class of antibiotics. The particular type of antibiotic chosen for you was determined by the nature of your problem. Penicillins are absorbed best when taken on an empty stomach, and should be taken either a half hour before or two hours after a meal. Some newer medicines of the penicillin class are better taken with food -- if this is the case, the pharmacist will label the medicine to alert you. Penicillins usually have no side effects. However, allergy to penicillins is common. If you have had an allergic reaction to any drug of the penicillin family, you should never take any other penicillin. Notify your doctor at once if you develop hives, itching, swelling, faintness, or shortness of breath. Less serious side effects can include nausea or diarrhea. STEROID MEDICATION: You have been given a medicine of the cortisone/steroid class. This medication is used to control inflammation or allergy. It is usually only given for a short period of time, until the acute process subsides. There are usually no side effects from short-term use of cortisone-like medications. Some persons feel an increased sense of well-being and are not sleepy at bedtime. Long-term use of cortisone medications is best avoided, unless required for a severe condition. If your condition does not remit, or relapses after the course of corticosteroid medication, you should consult your physician. Toradol Injection You have been given an injection of ketorolac tromethamine (Toradol). This is an excellent, safe drug for pain control. It also has potent antiinflammatory action. You should have significant pain relief within about one hour. Toradol is not addicting and is non-sedating. It does not interfere with driving or work. Call or return if you develop itching, hives, shortness of breath, or rash. Salt and soda solution 1 quart of water 1 tablespoon of salt 1 teaspoon of baking soda Mixed 3 ingredients together and boil for 1 minute Placed in a covered quart jar Use 1/2 ounce of cold solution to gargle 3 times a day SMOKING: If you smoke, you should stop smoking. The tar and chemicals in cigarette smoke are harmful. Smoking has been shown to cause: emphysema chronic bronchitis lung cancer mouth and throat cancer stomach and pancreas cancer premature aging defects In addition, smoking increases ear and lung infections in children of smokers. FOLLOW-UP CARE: If you have been referred to a physician for follow-up care, call the physician s office for an appointment as you were instructed or within the next two days. If you experience worsening or a significant change in your symptoms, notify the physician immediately or return to the Emergency Department at any time for re-evaluation. Forms: Elevated Blood Pressure, Smoking Cessation Education
== END 2017-09-16 20:09 | disposition home or self-care (01) ==
LOC: ER 19:09
DX: J02.9 Acute pharyngitis, unspecified (principal); J06.9 Acute upper respiratory infection, unspecified; R51 Headache; R50.9 Fever, unspecified; F17.210 Nicotine dependence, cigarettes, uncomplicated; Z90.49 Acquired absence of other specified parts of digestive tract
CPT/HCPCS: 99282; 96372; J1885; J0561; J1100

== ENCOUNTER 2018-10-28 18:56 | Emergency (ER) | payer SELFPAY ==
[2018-10-28] MEDS ORDERED: NORMAL SALINE 1000 ML 1,000 ML IV ONE (19:28)
[2018-10-28] MEDS ORDERED: KETOROLAC TROMETHAMINE INJ/PF 30 MG/1 ML SDV IV ONE ×2 (19:28→22:22)
--- NOTE | 2018-10-28 19:29 | ER Document Report ---
ED Medical Screen (RME) - General Chief Complaint: Vaginal Pain Stated Complaint: PELVIC PAIN Time Seen by Provider: 10/28/18 19:25 Mode of Arrival: Ambulatory Information source: Patient Notes: Patient presents complaining of lower pelvic pain to the left side that started yesterday. Patient's had nausea and vomiting. Patient reports vomiting numerous episodes. Patient denies any fever or urinary symptoms. I have greeted and performed a rapid initial assessment of this patient. A comprehensive ED assessment and evaluation of the patient, analysis of test results and completion of the medical decision making process will be conducted by additional ED providers. TRAVEL OUTSIDE OF THE [place] IN LAST 30 DAYS: No - Related Data Allergies/Adverse Reactions: No Known Allergies Allergy (Verified 10/28/18 18:57) Past Medical History - Past Medical History Cardiac Medical History: Reports: Hx Hypertension - with Pulmonary Medical History: Reports: Hx Bronchitis Denies: Hx Asthma, Hx Tuberculosis Neurological Medical History: Denies: Hx Seizures Renal/ Medical History: Reports: Hx Ovarian Cysts. Denies: Hx Peritoneal Dialysis GI Medical History: Reports: Hx Gastroesophageal Reflux Disease - chronic. Denies: Hx Hiatal Hernia, Hx Ulcer Musculoskeltal Medical History: Denies Hx Fibromyalgia Psychiatric Medical History: Traumatic Medical History: Denies: Hx Fractures Infectious Medical History: Denies: Hx HIV Past Surgical History: Reports: Hx Section - x 2, Hx Cholecystectomy, Hx Tonsillectomy - Immunizations Immunizations up to date: Yes Hx Diphtheria, Pertussis, Tetanus Vaccination: No Physical Exam - Vital signs Vitals: Temp Pulse Resp BP Pulse Ox 98.7 F 115 H 18 130/77 H 97 10/28/18 19:00 10/28/18 19:00 10/28/18 19:00 10/28/18 19:00 10/28/18 19:00 - Abdominal Tenderness: Tender - Left lower pelvic tenderness Course - Vital Signs Vital signs: Temp Pulse Resp BP Pulse Ox 98.7 F 115 H 18 130/77 H 97 10/28/18 19:00 10/28/18 19:00 10/28/18 19:00 10/28/18 19:00 10/28/18 19:00
[2018-10-28 20:07] LABS: ABSOLUTE BASOPHILS # (AUTO) 0.1 10^3/uL (0.0-0.2); ABSOLUTE EOSINOPHILS # (AUTO) 0.1 10^3/uL (0.0-0.6); ABSOLUTE LYMPHOCYTES (AUTO) 2.9 10^3/uL (0.5-4.7); ABSOLUTE MONOCYTES (AUTO) 0.5 10^3/uL (0.1-1.4); ABSOLUTE NEUT (AUTO) 10.3 10^3/uL (1.7-8.2); BASOPHILS % (AUTO) 0.6 % (0-2); EOSINOPHILS % (AUTO) 0.4 % (0-6); HEMATOCRIT 39.8 % (36.0-47.0); HEMOGLOBIN 13.2 g/dL (12.0-15.5); LYMPHOCYTES % (AUTO) 20.8 % (13-45); MEAN CORPUSCULAR HEMOGLOBIN 25.3 pg (27.0-33.4); MEAN CORPUSCULAR HGB CONC 33.1 g/dL (32.0-36.0); MEAN CORPUSCULAR VOLUME 76 fl (80-97); MONOCYTES % (AUTO) 3.8 % (3-13); PLATELET COUNT 323 10^3/uL (150-450); RED BLOOD COUNT 5.21 10^6/uL (3.72-5.28); RED CELL DISTRIBUTION WIDTH 14.8 % (11.5-14.0); SEGMENTED NEUTROPHILS % (AUTO) 74.4 % (42-78); TOTAL CELLS COUNTED % (AUTO) 100 %; WHITE BLOOD COUNT 13.9 10^3/uL (4.0-10.5)
[2018-10-28 20:11] LABS: APPEARANCE,URINE SLIGHTLY-CLOUDY; BILIRUBIN,URINE SMALL (NEGATIVE); COLOR,URINE AMBER; GLUCOSE, URINE NEGATIVE (NEGATIVE); KETONES,URINE 20 mg/dL (NEGATIVE); LEUKOCYTE ESTERASE,URINE NEGATIVE (NEGATIVE); NITRITE,URINE NEGATIVE (NEGATIVE); PROTEIN,URINE 30 mg/dL (NEGATIVE)
[2018-10-28 20:30] LABS: ALANINE AMINOTRANSFERASE 19 U/L (9-52); ALBUMIN 4.7 g/dL (3.5-5.0); ALKALINE PHOSPHATASE 99 U/L (38-126); ANION GAP 12 (5-19); ASPARTATE AMINO TRANSFERASE 18 U/L (14-36); BILIRUBIN,DIRECT 0.3 mg/dL (0.0-0.4); BILIRUBIN,TOTAL 0.5 mg/dL (0.2-1.3); BLOOD UREA NITROGEN 15 mg/dL (7-20); CALCIUM 10.1 mg/dL (8.4-10.2); CARBON DIOXIDE 26 mmol/L (22-30); CHLORIDE 102 mmol/L (98-107); GLUCOSE 101 mg/dL (75-110); POTASSIUM 4.4 mmol/L (3.6-5.0); SODIUM 140.2 mmol/L (137-145)
--- NOTE | 2018-10-28 20:46 | RADIOLOGY REPORT (SQ) ---
EXAM DESCRIPTION: US PELVIS TRANSVAGINAL COMPLETED DATE/TME: 10/28/2018 19:28 CLINICAL HISTORY: 33 years Female LLQ pain COMPARISON: None. TECHNIQUE: Transvaginal duplex imaging performed to evaluate the pelvis. FINDINGS: Cervix is closed and measures 3.1 cm. Uterus measures 11.6 x 4.9 cm. Endometrium is thickened and heterogeneous measuring 1.5 cm. No internal blood flow is noted. Right ovary measures 2.8 x 3 cm. Normal blood flow. Simple cyst measures 1.6 x 1.6 cm. Findings are almost certainly benign and no follow-up is recommended. Left ovary measures 1.7 x 1.7 x 2.3 cm normal blood flow. No evidence of adnexal mass. IMPRESSION: Mildly thickened endometrium Simple appearing cyst in the right ovary. This is almost certainly benign and no follow-up is recommended.
--- NOTE | 2018-10-28 23:05 | ER Document Report ---
ED General - General Chief Complaint: Vaginal Pain Stated Complaint: PELVIC PAIN Time Seen by Provider: 10/28/18 19:25 Mode of Arrival: Ambulatory Notes: Patient is a pleasant 33-year-old female presents with complaints of episode of severe pelvic pain rating to the back. Today she also had some vomiting with it when the pain was more intense. She says the last few times before her. She is been having this pain. She is also been having little bit more frequent menstrual periods and she will bleed for about a week at a time. She has had previous tubal ligation. No fevers. No vomiting. No diarrhea. No abnormal vaginal discharge. She is sexually active. Patient did have ultrasound ordered in triage and patient says that the ultrasound made her pain worse. TRAVEL OUTSIDE OF THE [place] IN LAST 30 DAYS: No - Related Data Allergies/Adverse Reactions: No Known Allergies Allergy (Verified 10/28/18 18:57) Past Medical History - General Information source: Patient - Social History Smoking Status: Never Smoker Chew tobacco use (# tins/day): No Frequency of alcohol use: None Drug Abuse: None Family History: Arthritis, CAD, CVA, DM, Hyperlipidemia, Hypertension Patient has suicidal ideation: No Patient has homicidal ideation: No - Past Medical History Cardiac Medical History: Reports: Hx Hypertension - with Pulmonary Medical History: Reports: Hx Bronchitis Denies: Hx Asthma, Hx Tuberculosis Neurological Medical History: Denies: Hx Seizures Renal/ Medical History: Reports: Hx Ovarian Cysts. Denies: Hx Peritoneal Dialysis GI Medical History: Reports: Hx Gastroesophageal Reflux Disease - chronic. Denies: Hx Hiatal Hernia, Hx Ulcer Musculoskeletal Medical History: Denies Hx Fibromyalgia Psychiatric Medical History: Traumatic Medical History: Denies: Hx Fractures Infectious Medical History: Denies: Hx HIV Past Surgical History: Reports: Hx Section - x 2, Hx Cholecystectomy, Hx Tonsillectomy - Immunizations Immunizations up to date: Yes Hx Diphtheria, Pertussis, Tetanus Vaccination: No Review of Systems - Review of Systems Notes: My Normal Review Basic REVIEW OF SYSTEMS: CONSTITUTIONAL : Denies fever, chills, or sweats. Denies recent illness. RESPIRATORY: Denies cough, cold, or chest congestion. Denies shortness of breath, difficulty breathing, or wheezing. GASTROINTESTINAL: Lower abdominal pain that is more into the pelvis. Vomiting. GENITOURINARY: Denies difficulty urinating, painful urination, burning, frequency, or blood in urine. FEMALE GENITOURINARY: Abnormal vaginal bleeding. MUSCULOSKELETAL: Denies neck or back pain or joint pain or swelling. SKIN: Denies rash or skin lesions. NEUROLOGICAL: Denies altered mental status or loss of consciousness. Denies headache. Denies weakness or paralysis or loss of use of either side. Denies problems with gait or speech. Denies sensory or motor loss. ALL OTHER SYSTEMS REVIEWED AND NEGATIVE. Physical Exam - Vital signs Vitals: Temp Pulse Resp BP Pulse Ox 98.7 F 115 H 18 130/77 H 97 10/28/18 19:00 10/28/18 19:00 10/28/18 19:00 10/28/18 19:00 10/28/18 19:00 - Notes Notes: General Appearance: Well nourished, alert, cooperative, no acute distress, moderate obvious discomfort. Vitals: reviewed, See vital signs table. Eyes: PERRL, EOMI, Conjuctiva clear Lungs: No wheezing, No rales, No rhonci, No accessory muscle use, good air exchange bilaterally. Heart: Normal rate, Regular rythm, No murmur, no rub Abdomen: Normal BS, soft, No rigidity, lower abdominal tenderness to palpation that slightly worse on the left., No guarding, no rebound, no abdominal masses, no organomegaly Pelvic: Normal external genitalia. No blood in vaginal vault. No abnormal discharge. Exam performed with female devops engineer, Angelica HAGAN. Extremities: strength 5/5 in all extremities, good pulses in all extremities, no swelling or tenderness in the extremities, no edema. Skin: warm, dry, appropriate color, no rash Neuro: speech clear, oriented x 3, normal affect, responds appropriately to questions. Course - Re-evaluation Re-evalutation: 10/29/18 00:16 Patient in fact the patient has had irregular menstrual periods with heavy bleeding as well as pain right around the time of her menstrual period has been more intense and suspect there is a good chance she may have endometriosis. Most of her labs are normal-appearing. Pelvic exam did not show any abnormal discharge. He do not suspect STD at this time. I still sent swabs for gonorrhea chlamydia in case they are positive and we will call her if they are positive. At this time feel she safe to be discharged home. I will refer her to gynecology for further treatment work-up. I will place her on Toradol. I encouraged her return to ER if she has worsening pain, fevers, heavy bleeding, or if she feels she is worsening in any way. Patient agrees with plan will be discharged home. Dictation of this chart was performed using voice recognition software; therefore, there may be some unintended grammatical errors. - Vital Signs Vital signs: Temp Pulse Resp BP Pulse Ox 98.7 F 115 H 18 130/77 H 97 10/28/18 19:00 10/28/18 19:00 10/28/18 19:00 10/28/18 19:00 10/28/18 19:00 - Laboratory Result Diagrams: 10/28/18 19:38 10/28/18 19:38 Laboratory results interpreted by me: 10/28/18 10/28/18 19:38 19:38 WBC 13.9 H MCV 76 L MCH 25.3 L RDW 14.8 H Absolute Neutrophils 10.3 H Urine Protein 30 H Urine Ketones 20 H Urine Blood SMALL H Urine Bilirubin SMALL H Urine Urobilinogen 2.0 H Discharge - Discharge Clinical Impression: Pelvic pain Condition: Good Disposition: HOME, SELF-CARE Additional Instructions: I suspect based on your history that it is likely that you may have endometriosis. Ultrasound does show small ovarian cyst and this should not be causing your pain. I suggest you follow-up with gynecology. I will refer you to our wood heel flap trimmer on-call, Dr. Kerry Crowell. Please call her office to make a close follow-up appointment. I prescribed you Toradol for pain. Do not take other NSAID medications such as Aspirin, Motrin, Ibuprofen, Aleve, or Advil when taking the Toradol. It is okay to take Tylenol. Please return to the ER immediately if you have heavy vaginal bleeding, worsening severe pain, i ntractable vomiting, fevers, or if you feel you are worsening. Prescriptions: Ketorolac Tromethamine [Toradol 10 mg Tablet] 10 mg PO Q8HP PRN #15 tablet PRN Reason: Ondansetron [Zofran Odt 4 mg Tablet] 1 tab PO Q4H PRN #15 tab.rapdis PRN Reason: For Nausea/Vomiting Referrals: KERRY CROWELL MD [ACTIVE STAFF] - Follow up in 3-5 days
[2018-10-28 23:13] LABS: RBCS (WET MOUNT) NO RBCS SEEN; T.VAGINALIS (WET MOUNT) NO TRICHOMONAS SEEN; WBCS (WET MOUNT) NO WBCS SEEN; YEAST (WET MOUNT) NO YEAST SEEN
[2018-10-29] MEDS ORDERED: ONDANSETRON ODT 4 MG TAB (6 TAB/ER DISP) PO PRN (00:12)
[2018-10-29 00:23] VITALS: BP 123/52
[2018-10-29 00:47] LABS: CHLAM PCR NOT DETECTED (NOT DETECT)
== END 2018-10-29 00:23 | disposition home or self-care (01) ==
LOC: ER 18:56
DX: R10.2 Pelvic and perineal pain (principal); Z98.51 Tubal ligation status; Z90.49 Acquired absence of other specified parts of digestive tract
CPT/HCPCS: 96376; 99284; 96361; 96374; 36415; 87210; 84703; 85025; 80053; 81001; 87491; 87591; 76830; 93976; J1885; J7030